=== PATIENT | female | born 1975 | race Caucasian/White ===

== ENCOUNTER 2018-11-25 12:10 | Inpatient (IN) | payer OTHER ==
[~2018-11-25 12:10] MED LIST: OXYTOCIN 30 UNITS/LR 500 ML BAG IV
[2018-11-25] MEDS ORDERED: CLINDAMYCIN 900 MG/D5W (PMX) 50 ML IVPB ×2 (13:30→20:30)
[2018-11-25] MEDS ORDERED: MISOPROSTOL 200 MCG TAB PR ×3 (13:30→22:30)
[2018-11-25] MEDS ORDERED: OXYTOCIN 30 UNITS/LR 500 ML IV ×3 (13:30→22:30)
[2018-11-25] MEDS ORDERED: METHYLERGONOVINE 0.2 MG INJ IM ×3 (13:30→22:30)
[2018-11-25] MEDS ORDERED: CARBOPROST 250 MCG INJ IM ×3 (13:30→22:30)
[2018-11-25 13:50] LABS: ADD MAN DIFF? NO
[2018-11-25 13:51] LABS: WHITE BLOOD COUNT 12.7 10^3/ul (4.8-10.8)
[2018-11-25 13:51] LABS: BASOPHILS % 0.2 % (0.0-2.0); EOSINOPHILS # 0.1 10^3/ul (0.0-0.5); EOSINOPHILS % 0.9 % (0.0-7.0); HEMATOCRIT 38.1 % (37.0-47.0); HEMOGLOBIN 12.2 g/dl (12.0-16.0); LYMPHOCYTES # 2.3 10^3/ul (0.8-2.9); LYMPHOCYTES % 17.9 % (15.0-51.0); MEAN CORPUSCULAR HEMOGLOBIN 29.5 pg (29.0-33.0); MEAN CORPUSCULAR VOLUME 92.3 fl (82.0-101.0); MEAN PLATELET VOLUME 11.8 fl (7.4-10.4); MONOCYTE # 1.1 10^3/ul (0.3-0.9); MONOCYTES % 8.7 % (0.0-11.0); NEUTROPHILS % 70.7 % (39.0-77.0); PLATELET COUNT 180 10^3/UL (140-415); RED BLOOD COUNT 4.13 10^6/ul (4.20-5.40); RED CELL DISTRIBUTION WIDTH 14.4 % (11.5-14.5)
[2018-11-25 14:06] LABS: ADD UMIC YES; UR ASCORBIC ACID NEGATIVE (NEGATIVE); UR BILIRUBIN (Dip) NEGATIVE (NEGATIVE); UR BLOOD (Dip) 1+ mg/dL (NEGATIVE); UR CLARITY SLIGHTLY CLOUDY (CLEAR); UR COLOR AMBER (YELLOW); UR GLUCOSE (Dip) 1+ mg/dL (NEGATIVE); UR KETONES (Dip) TRACE mg/dL (NEGATIVE); UR LEUKOCYTE ESTERASE (Dip) NEGATIVE Leu/ul (NEGATIVE); UR MUCUS MANY /HPF (NONE SEEN); UR NITRITE (Dip) NEGATIVE (NEGATIVE); UR RBC 3 /HPF (0-5); UR SPECIFIC GRAVITY (Dip) 1.031 (1.003-1.030); UR SQUAMOUS EPITHELIAL CELL MODERATE /HPF (FEW); UR TOTAL PROTEIN (Dip) 1+ mg/dl (NEGATIVE); UR UROBILINOGEN (Dip) NEGATIVE (NEGATIVE); UR WBC 1 /HPF (0-5)
[2018-11-25 14:10] LABS: INR 0.92; PROTIME 12.5 Sec (11.9-14.9)
[2018-11-25 14:11] LABS: PARTIAL THROMBOPLASTIN TIME 22.7 Sec (23.0-35.0)
[2018-11-25 14:14] LABS: RUPTURE FETAL MEMBRANES NEGATIVE (NEGATIVE)
[2018-11-25] MEDS: LACTATED RINGER'S 1,000 ML IV ×2 (14:57→20:17)
[2018-11-25] MEDS: BETAMET NA PHOS/AC(6 MG/ML) 2 ML INJ SYG IM (17:45)
[2018-11-25 17:57] LABS: AMPHETAMINE/METHAMPHETAMINE Negative (NEGATIVE); BARBITURATES Negative (NEGATIVE); BENZODIAZEPINES Negative (NEGATIVE); CANNABINOIDS Negative (NEGATIVE); COCAINE Negative (NEGATIVE); OPIATES Negative (NEGATIVE)
[2018-11-25 19:32] LABS: RAPID PLASMA REAGIN NONREACTIVE (NR)
[2018-11-25] MEDS ORDERED: morphine SULFATE/PF (10 MG/10 ML) INJ (20:37)
[2018-11-25] MEDS ORDERED: DIPHENHYDRAMINE 50 MG INJ IV (21:00)
[2018-11-25] MEDS ORDERED: NALOXONE (0.4 MG/ML) INJ IV (21:00)
[2018-11-25] MEDS ORDERED: BETAMET NA PHOS/AC(6 MG/ML) 2 ML INJ SYG IM (21:00)
[2018-11-25] MEDS ORDERED: ONDANSETRON 4 MG INJ IV ×2 (21:00)
[2018-11-25] MEDS ORDERED: METOCLOPRAMIDE 10 MG INJ IV (21:00)
[2018-11-25] MEDS ORDERED: ALBUTEROL 0.083% (NEB) 2.5 MG/3 ML AMP HHN (21:00)
[2018-11-25] MEDS ORDERED: HYDROmorphONE 1 MG/5 ML IV SYRINGE IV ×2 (21:00)
[2018-11-25] MEDS ORDERED: FENTAnyl 50 MCG/ML VIAL IV ×3 (21:00)
[2018-11-25] MEDS ORDERED: PHENYLephrine (100 MCG/ML) 10ML SYG (21:12)
[2018-11-25] MEDS: OXYTOCIN 30 UNITS/LR 500 ML IV ×2 (22:03→22:57)
[2018-11-25] MEDS ORDERED: LANOLIN HPA 1 PKT TOP (22:30)
[2018-11-25] MEDS ORDERED: HYDROCODONE/APAP (5/325) TAB PO (22:30)
[2018-11-25] MEDS ORDERED: METHYLERGONOVINE 0.2 MG TAB PO (22:30)
[2018-11-25] MEDS: HYDROmorphONE 1 MG/5 ML IV SYRINGE IV (23:48)
[2018-11-26] MEDS: LACTATED RINGER'S 1,000 ML IV ×3 (01:45→17:56)
[2018-11-26 02:04] LABS: HEPATITIS B SURFACE ANTIGEN NEGATIVE (NEGATIVE)
[2018-11-26] MEDS: DIPHENHYDRAMINE 50 MG INJ IV ×2 (02:25→14:22)
[2018-11-26 08:17] LABS: ADD MAN DIFF? NO
[2018-11-26 08:20] LABS: ABNORMAL IP MESSAGE 1; BASOPHILS % 0.1 % (0.0-2.0); HEMATOCRIT 35.2 % (37.0-47.0); HEMOGLOBIN 11.6 g/dl (12.0-16.0); LYMPHOCYTES # 1.7 10^3/ul (0.8-2.9); LYMPHOCYTES % 6.7 % (15.0-51.0); MEAN CORPUSCULAR HEMOGLOBIN 30.3 pg (29.0-33.0); MEAN CORPUSCULAR VOLUME 91.9 fl (82.0-101.0); MONOCYTE # 1.6 10^3/ul (0.3-0.9); MONOCYTES % 6.4 % (0.0-11.0); NEUTROPHIL # 21.8 10^3/ul (1.6-7.5); NEUTROPHILS % 85.6 % (39.0-77.0); PLATELET COUNT 188 10^3/UL (140-415); RED BLOOD COUNT 3.83 10^6/ul (4.20-5.40); RED CELL DISTRIBUTION WIDTH 14.5 % (11.5-14.5)
[2018-11-26 08:20] LABS: WHITE BLOOD COUNT 25.5 10^3/ul (4.8-10.8)
[2018-11-26 08:22] LABS: POSITIVE DIFF @See below
[2018-11-26 08:44] LABS: ANION GAP 10 (5-13); BLOOD UREA NITROGEN 4 mg/dl (7-20); CARBON DIOXIDE 20 mmol/L (21-31); CHLORIDE 105 mmol/L (97-110); CREATININE 0.42 mg/dl (0.44-1.00); Estimated GFR > 60 mL/min (>60); GLUCOSE 106 mg/dl (70-220); POTASSIUM 4.4 mmol/L (3.5-5.1); SODIUM 135 mmol/L (135-144)
[2018-11-26] MEDS: SENNA/DOCUSATE NA (8.6MG/50MG) TAB PO ×2 (09:34→21:19)
[2018-11-26] MEDS ORDERED: HYDROmorphONE 0.5 MG/0.5 ML SYG IV ×2 (10:00)
[2018-11-26] MEDS: HYDROmorphONE 0.5 MG/0.5 ML SYG IV (14:33)
[2018-11-26] MEDS ORDERED: ALBUTEROL HFA 8 GM INHALER INH (15:00)
[2018-11-26] MEDS: HYDROCODONE/APAP (5/325) TAB PO ×2 (18:53→22:39)
[2018-11-27] MEDS: HYDROCODONE/APAP (5/325) TAB PO ×4 (03:09→22:31)
[2018-11-27] MEDS: BISACODYL 10 MG SUPP PR ×2 (03:44→09:00)
[2018-11-27] MEDS: MAGNESIUM HYDROXIDE 30ML CUP PO ×3 (03:44→15:05)
[2018-11-27 08:37] LABS: ADD MAN DIFF? NO
[2018-11-27 08:40] LABS: BASOPHILS % 0.2 % (0.0-2.0); EOSINOPHILS # 0.1 10^3/ul (0.0-0.5); EOSINOPHILS % 0.4 % (0.0-7.0); HEMATOCRIT 36.8 % (37.0-47.0); HEMOGLOBIN 11.6 g/dl (12.0-16.0); LYMPHOCYTES # 2.2 10^3/ul (0.8-2.9); LYMPHOCYTES % 11.5 % (15.0-51.0); MEAN CORPUSCULAR HEMOGLOBIN 29.7 pg (29.0-33.0); MEAN CORPUSCULAR HGB CONC 31.5 g/dl (32.0-37.0); MEAN CORPUSCULAR VOLUME 94.1 fl (82.0-101.0); MEAN PLATELET VOLUME 11.9 fl (7.4-10.4); MONOCYTE # 1.3 10^3/ul (0.3-0.9); MONOCYTES % 6.8 % (0.0-11.0); NEUTROPHIL # 15.1 10^3/ul (1.6-7.5); NEUTROPHILS % 79.9 % (39.0-77.0); PLATELET COUNT 197 10^3/UL (140-415); RED BLOOD COUNT 3.91 10^6/ul (4.20-5.40); RED CELL DISTRIBUTION WIDTH 14.6 % (11.5-14.5)
[2018-11-27 08:40] LABS: WHITE BLOOD COUNT 18.9 10^3/ul (4.8-10.8)
[2018-11-27] MEDS: SENNA/DOCUSATE NA (8.6MG/50MG) TAB PO ×2 (08:44→21:22)
[2018-11-27] MEDS: LACTATED RINGER'S 1,000 ML IV ×3 (13:28→13:29)
[2018-11-28] MEDS: HYDROCODONE/APAP (5/325) TAB PO ×2 (03:35→07:38)
[2018-11-28 06:57] LABS: ADD MAN DIFF? NO
[2018-11-28 07:00] LABS: WHITE BLOOD COUNT 13.7 10^3/ul (4.8-10.8)
[2018-11-28 07:00] LABS: BASOPHILS % 0.1 % (0.0-2.0); EOSINOPHILS # 0.3 10^3/ul (0.0-0.5); EOSINOPHILS % 1.9 % (0.0-7.0); HEMATOCRIT 32.3 % (37.0-47.0); HEMOGLOBIN 10.3 g/dl (12.0-16.0); LYMPHOCYTES # 2.3 10^3/ul (0.8-2.9); LYMPHOCYTES % 16.6 % (15.0-51.0); MEAN CORPUSCULAR HEMOGLOBIN 29.8 pg (29.0-33.0); MEAN CORPUSCULAR HGB CONC 31.9 g/dl (32.0-37.0); MEAN CORPUSCULAR VOLUME 93.4 fl (82.0-101.0); MEAN PLATELET VOLUME 11.5 fl (7.4-10.4); MONOCYTE # 1.3 10^3/ul (0.3-0.9); MONOCYTES % 9.2 % (0.0-11.0); NEUTROPHIL # 9.8 10^3/ul (1.6-7.5); NEUTROPHILS % 71.5 % (39.0-77.0); PLATELET COUNT 190 10^3/UL (140-415); RED BLOOD COUNT 3.46 10^6/ul (4.20-5.40); RED CELL DISTRIBUTION WIDTH 14.6 % (11.5-14.5)
[2018-11-28] MEDS: BISACODYL 10 MG SUPP PR (08:00)
[2018-11-28] MEDS ORDERED: MEASLES,MUMPS,RUBELLA VACCINE INJ SC* (09:00)
[2018-11-28] MEDS: SENNA/DOCUSATE NA (8.6MG/50MG) TAB PO (09:32)
[2018-11-28] MEDS: BACITRACIN 0.5%/ZINC 28.35 GM OINT TOP (14:25)
[2018-11-28] MEDS ORDERED: BACITRACIN 0.9 GM OINT TOP (14:30)
== END 2018-11-28 16:00 | disposition home or self-care (01) | DRG 785 ==
LOC: OBT 12:10 → PP1 11-26 00:27 → L-D 12:10 → OBT 13:36 → L-D 13:10
PROC: 10D00Z1 Extraction of Products of Conception, Low, Open Approach (ICD-10-PCS; principal; 2018-11-25 20:30)
PROC: 0UB70ZZ Excision of Bilateral Fallopian Tubes, Open Approach (ICD-10-PCS; 2018-11-25 20:30)
PROC: 0DNU0ZZ Release Omentum, Open Approach (ICD-10-PCS; 2018-11-25 20:30)
DX: O34.219 Maternal care for unspecified type scar from previous cesarean delivery (principal); O99.214 Obesity complicating childbirth; E66.01 Morbid (severe) obesity due to excess calories; O99.89 Other specified diseases and conditions complicating pregnancy, childbirth and the puerperium; N73.6 Female pelvic peritoneal adhesions (postinfective); G89.18 Other acute postprocedural pain; Z37.0 Single live birth; Z3A.36 36 weeks gestation of pregnancy; Z30.2 Encounter for sterilization
CPT/HCPCS: 76815; 80048; 80307; 81001; 84112; 85025; 85610; 85730; 86592; 86850; 86900; 86901; 87086; 87340; 88302; 88305; 99464